=== PATIENT | female | born 1985 | race Caucasian/White ===

== ENCOUNTER 2016-08-27 12:15 | Emergency (ER) | payer SELFPAY ==
[2016-08-27 13:14] VITALS: TEMP 98.7; BMI 57.3
[2016-08-27 13:27] LABS: AUTOMATED BASOPHIL 0.7 % (0-2); AUTOMATED EOSINOPHIL 2.2 % (0-5); AUTOMATED LYMPH 24.6 % (17-44); AUTOMATED MONOCYTE 5.3 % (3-10); AUTOMATED NEUTROPHIL 67.2 % (45-76); MPV 8.5 fL (7.4-10.4)
[2016-08-27 13:36] LABS: BLOOD UREA NITROGEN 15 MG/DL (7-17); CALCIUM 9.2 MG/DL (8.4-10.2); CALCULATED OSMOLALITY 270 MOs/Kg (270-290); CHLORIDE 103 mEq/L (98-107); GLUCOSE 113 MG/DL (70-99); SODIUM LEVEL 139 mEq/L (137-146); TOTAL PROTEIN 7.7 G/DL (6.3-8.2)
[2016-08-27 13:42] LABS: LEUKOCYTES/URINE TRACE (NEGATIVE); NITRITE/URINE NEG (NEGATIVE); URINE OCCULT BLOOD NEG (NEG/TRACE)
[2016-08-27 14:07] LABS: hTSH 2.4 uIU/mL (0.5-4.67)
[2016-08-27 14:34] LABS: FREE T3 3.61 pg/mL (2.77-5.27); FREE T4 0.73 ng/dL (0.78-2.19)
--- NOTE | 2016-08-27 16:31 | EDPRACDOC ---
- General Information Information Source: Patient Mode Of Arrival: Car - History of Present Illness Onset: 1 MONTH Last Menstrual Period: IUD : No Blood Type: O+ <Penny Eldridge - Last Filed: 08/27/16 16:31> - History of Present Illness Pain Location: Reports: Diffuse Pain Context: Reports: Spontaneous Pain Severity: Mild Pain Quality: Reports: Aching Pain Radiation: Reports: No Radiation Adult Abdominal History: Reports: Abdominal Surgery Modifying Factors: improves with: Nothing Female Associated Signs & Symptoms: Reports: Nausea Oral Intake: Normal Urinary Output: Normal <Franklyn Guerrero - Last Filed: 08/27/16 20:10> - General Information Chief Complaint: Abdominal Pain Stated Complaint: ABD PAIN Time Seen by Provider: 08/27/16 16:30 Home Medications: Home Medications Ketorolac Tromethamine 10 mg PO Q6H PRN #20 tab 08/27/16 Allergies/Adverse Reactions: Allergies Allergy/AdvReac Type Severity Reaction Status Date / Time Penicillins Allergy Rash-Genera Verified 08/27/16 13:14 lized - History of Present Illness HPI: HX OF UMBILICAL HERNIA; ABDOMINAL PAIN FOR A MONTH THAT IS NOW WORSE. NAUSEA WITHOUT VOMITING. TWO PREVIOUS ABDOMINAL SURGERIES. (Franklyn Guerrero) ED Past Medical History - Patient Medical History Psychological History: Reports: Anxiety. Denies: Depression Systemic History: Reports: Diabetes (GESTATIONAL), Hypothyroidism. Denies: Cancer, Anemia, Lupus Surgical History: Reports: Hernia Surgery (04/2014), Other (incarcerated incisional hernia repair, removal of mesh) - Family Medical History Reports: Diabetes (FATHER), Stroke (FATHER TIA), Cardiac Disorders (FATHER). Denies: Hypertension, Cancer - Social Medical History Smoking Status: Never smoker <Penny Eldridge - Last Filed: 08/27/16 16:31> - History Reviewed Yes Nurses notes reviewed and agree except as marked <Franklyn Guerrero - Last Filed: 08/27/16 20:10> EDM Review of Systems - Review of Systems ROS Negative Except as Marked: Yes All systems reviewed and were negative except as marked <Franklyn Guerrero - Last Filed: 08/27/16 20:10> - Physical Exam Constitutional: Alert (Awake), No apparent distress Oriented to: Time, Person, Place - HEENT Head: Normal ( normocephalic) Eye Exam: Normal (PERRL, EOMI, Sclera white) Oropharynx: Normal (Pharynx:Moist without exudate,Gums-no swelling) Tympanic Membrane: Normal ENT EAC: Normal TMJ: Normal Nose: No Symptoms Reported (septum midline) Neck: Normal (FROM, trachea at midline) - Respiratory/Cardiovascular Respiratory: Normal - CTA (BBS clear to auscultation without adventitious sounds ) Cardiovascular: Normal (RRR without murmur, gallop or rub) - GI Auscultation: Normal (NABS) Palpation: Normal (Soft,No rebound or guarding, non distended) Tenderness: Non tender Bahena's Sign: Negative - Musculoskeletal Back: Normal (Non-Tender) Extremities: Normal (Normal tone, Pulses 2+ No cyanosis or edema, FROM) - Integumentary Skin: Normal, Warm, Dry Lymphatics: Normal (no adenopathy) - Neurologic Memory Impaired: Normal Motor Function: Normal (Normal tone, Pulses 2+ No cyanosis or edema, FROM) Cranial Nerve: Normal (CN II-X11 intact sensation, strength 5/5) Cerebellar: Normal Mood Description: Normal Perception: Normal <Franklyn Guerrero - Last Filed: 08/27/16 20:10> - Physical Exam Last recorded Vital Signs: Last Vital Signs Temp 98.7 F 08/27/16 13:11 Pulse 70 08/27/16 19:56 Resp 18 08/27/16 19:56 BP 128/69 08/27/16 19:56 Pulse Ox 95 08/27/16 19:56 Oxygen Pulse Oxygen Saturation 95 O2 Device Room Air Oxygen Flow Rate Fraction of Inspired Oxygen ( FIO2) (Penny Eldridge) (Franklyn Guerrero) - Results 08/27/16 13:18 08/27/16 13:18 <Penny Eldridge - Last Filed: 08/27/16 16:31> - Results 08/27/16 13:18 08/27/16 13:18 <Franklyn Guerrero - Last Filed: 08/27/16 20:10> - Results WBC 11.3 xk/uL (3.8-10.8) H 08/27/16 13:18 RBC 4.48 xM/uL (4.20-5.40) 08/27/16 13:18 Hgb 12.5 g/dL (12.0-16.0) 08/27/16 13:18 Hct 38.1 % (36-47) 08/27/16 13:18 MCV 85 fL (81-99) 08/27/16 13:18 MCH 27.8 pg (27-32) 08/27/16 13:18 MCHC 32.7 g/dl (33-36) L 08/27/16 13:18 RDW 14.5 % (11.5-14.5) 08/27/16 13:18 Plt Count 301 xk/uL (130-400) 08/27/16 13:18 MPV 8.5 fL (7.4-10.4) 08/27/16 13:18 Neut % (Auto) 67.2 % (45-76) 08/27/16 13:18 Lymph % (Auto) 24.6 % (17-44) 08/27/16 13:18 Catahoula % (Auto) 5.3 % (3-10) 08/27/16 13:18 Eos % (Auto) 2.2 % (0-5) 08/27/16 13:18 Baso % (Auto) 0.7 % (0-2) 08/27/16 13:18 Absolute Neuts (auto) 7.57 xk/uL (1.7-8.2) 08/27/16 13:18 Absolute Lymphs (auto) 2.71 xk/uL (0.65-4.75) 08/27/16 13:18 Sodium 139 mEq/L (137-146) 08/27/16 13:18 Potassium 3.9 mEq/L (3.5-5.1) 08/27/16 13:18 Chloride 103 mEq/L (98-107) 08/27/16 13:18 Carbon Dioxide 25 mMOL/L (22-33) 08/27/16 13:18 Anion Gap 15 mEq/L (8-16) 08/27/16 13:18 BUN 15 MG/DL (7-17) 08/27/16 13:18 Creatinine 0.50 MG/DL (0.52-1.04) L 08/27/16 13:18 Estimated GFR (MDRD) > 60 mL/min (>=60) 08/27/16 13:18 Glucose 113 MG/DL (70-99) H 08/27/16 13:18 Calculated Osmolality 270 MOs/Kg (270-290) 08/27/16 13:18 Calcium 9.2 MG/DL (8.4-10.2) 08/27/16 13:18 Total Bilirubin 0.4 MG/DL (0.2-1.3) 08/27/16 13:18 AST 27 IU/L (14-36) 08/27/16 13:18 ALT 37 IU/L (9-52) 08/27/16 13:18 Alkaline Phosphatase 146 IU/L (38-126) H 08/27/16 13:18 Total Protein 7.7 G/DL (6.3-8.2) 08/27/16 13:18 Albumin 4.2 G/DL (3.5-5.0) 08/27/16 13:18 Lipase 94 U/L (23-300) 08/27/16 13:18 TSH 2.40 uIU/mL (0.5-4.67) 08/27/16 13:18 Free T4 0.73 ng/dL (0.78-2.19) L 08/27/16 13:18 Free T3 3.61 pg/mL (2.77-5.27) 08/27/16 13:18 Urine Color Yellow 08/27/16 13:20 Urine Clarity Sl cldy 08/27/16 13:20 Urine pH 6.0 (5.0-8.0) 08/27/16 13:20 Ur Specific Arnett 1.015 (1.003-1.035) 08/27/16 13:20 Urine Protein Neg (NEG/TRACE) 08/27/16 13:20 Urine Glucose (UA) Neg (NEGATIVE) 08/27/16 13:20 Urine Ketones Neg (NEGATIVE) 08/27/16 13:20 Urine Occult Blood Neg (NEG/TRACE) 08/27/16 13:20 Urine Nitrite Neg (NEGATIVE) 08/27/16 13:20 Urine Bilirubin Neg (NEGATIVE) 08/27/16 13:20 Urine Urobilinogen <2.0 MG/DL (0-1) 08/27/16 13:20 Ur Leukocyte Esterase Trace (NEGATIVE) H 08/27/16 13:20 Urine RBC 2-5 (0-5) 08/27/16 13:20 Urine WBC 5-10 (0-5) H 08/27/16 13:20 Ur Epithelial Cells 2+ 08/27/16 13:20 Urine Bacteria Few (NEG/FEW) 08/27/16 13:20 Urine Mucus Occ (NEG/OCC) 08/27/16 13:20 Urine Test Neg (NEGATIVE) 08/27/16 13:20 Lab Results 08/27/16 08/27/16 08/27/16 13:20 13:20 13:18 WBC RBC Hgb Hct MCV MCH MCHC RDW Plt Count MPV Neut % (Auto) Lymph % (Auto) Cata[place]oula % (Auto) Eos % (Auto) Baso % (Auto) Absolute Neuts (auto) Absolute Lymphs (auto) Sodium Potassium Chloride Carbon Dioxide Anion Gap BUN Creatinine Estimated GFR (MDRD) Glucose Calculated Osmolality Calcium Total Bilirubin AST ALT Alkaline Phosphatase Total Protein Albumin Lipase TSH 2.40 Free T4 0.73 L Free T3 3.61 Urine Color Yellow Urine Clarity Sl cldy Urine pH 6.0 Ur Specific Arnett 1.015 Urine Protein Neg Urine Glucose (UA) Neg Urine Ketones Neg Urine Occult Blood Neg Urine Nitrite Neg Urine Bilirubin Neg Urine Urobilinogen <2.0 Ur Leukocyte Esterase Trace H Urine RBC 2-5 Urine WBC 5-10 H Ur Epithelial Cells 2+ Urine Bacteria Few Urine Mucus Occ Urine Test Neg 08/27/16 08/27/16 13:18 13:18 WBC 11.3 H RBC 4.48 Hgb 12.5 Hct 38.1 MCV 85 MCH 27.8 MCHC 32.7 L RDW 14.5 Plt Count 301 MPV 8.5 Neut % (Auto) 67.2 Lymph % (Auto) 24.6 [place]oul[place] % (Auto) 5.3 Eos % (Auto) 2.2 Baso % (Auto) 0.7 Absolute Neuts (auto) 7.57 Absolute Lymphs (auto) 2.71 Sodium 139 Potassium 3.9 Chloride 103 Carbon Dioxide 25 Anion Gap 15 BUN 15 Creatinine 0.50 L Estimated GFR (MDRD) > 60 Glucose 113 H Calculated Osmolality 270 Calcium 9.2 Total Bilirubin 0.4 AST 27 ALT 37 Alkaline Phosphatase 146 H Total Protein 7.7 Albumin 4.2 Lipase 94 TSH Free T4 Free T3 Urine Color Urine Clarity Urine pH Ur Specific Arnett Urine Protein Urine Glucose (UA) Urine Ketones Urine Occult Blood Urine Nitrite Urine Bilirubin Urine Urobilinogen Ur Leukocyte Esterase Urine RBC Urine WBC Ur Epithelial Cells Urine Bacteria Urine Mucus Urine Test (Penny Eldridge) (Franklyn Guerrero) <Penny Eldridge - Last Filed: 08/27/16 16:31> Decision Time to Discharge: 20:10 - Departure Yes I personally saw and evaluated the patient. Disposition: Home Education/Counseling Given To: Patient Education/Counseling Given Regarding: Diagnosis, Treatment, Prognosis <Franklyn Guerrero - Last Filed: 08/27/16 20:10> - Departure Condition: Good Final Diagnosis: Abdominal pain Instructions: Acute Abdominal Pain (ED) Prescriptions: Ketorolac Tromethamine 10 mg PO Q6H PRN #20 tab PRN Reason: Pain
[2016-08-27] MEDS ORDERED: NS 1,000 ML IV ONE (16:35)
[2016-08-27] MEDS ORDERED: DIATRIZOATE MEGLMINE/SODIUM 30 ML BOTTLE PO ONE (16:35)
[2016-08-27] MEDS ORDERED: HYDROmorphone 1 MG INJECTION IV PRN (16:35)
[2016-08-27] MEDS ORDERED: ONDANSETRON HCL 4 MG/2 ML VIAL IV PRN (16:35)
[2016-08-27] MEDS ORDERED: ONDANSETRON HCL 4 MG/2 ML VIAL IV ONE (16:35)
[2016-08-27] MEDS ORDERED: HYDROmorphone 1 MG INJECTION IV ONE (16:35)
[2016-08-27] MEDS ORDERED: Pharmacy Review for Metformin - IV Contrast Given SCH (17:00)
--- NOTE | 2016-08-27 20:08 | DIRPT ---
CLINICAL DATA: Epigastric and mid abdominal pain for 2 months, worsening. EXAM: CT ABDOMEN AND PELVIS WITH CONTRAST TECHNIQUE: Multidetector CT imaging of the abdomen and pelvis was performed using the standard protocol following bolus administration of intravenous contrast. CONTRAST: 100 cc Isovue 370 COMPARISON: CT scan from 09/11/2014 FINDINGS: Body habitus reduces diagnostic sensitivity and specificity. Lower chest: Unremarkable Hepatobiliary: Diffuse hepatic steatosis Pancreas: Unremarkable Spleen: Unremarkable Adrenals/Urinary Tract: Unremarkable Stomach/Bowel: Unremarkable Vascular/Lymphatic: Unremarkable Reproductive: IUD satisfactorily positioned along the endometrium. Other: No supplemental non-categorized findings. Musculoskeletal: Periumbilical ventral hernia measures 8.1 by 10.1 by 9.8 cm, with the hernia neck measuring 3.0 by 3.5 cm. The hernia contains omental adipose tissue with some mild associated stranding, but no bowel. Can unremarkable IMPRESSION: 1. Periumbilical hernia containing omental adipose tissue, with herniated tissue measuring up to 10.1 cm in long axis. 2. Diffuse hepatic steatosis. 3. Otherwise, no significant abnormalities are observed. Electronically Signed By: Chente Everett M.D. On: 08/27/2016 20:06
[2016-08-27 20:55] VITALS: BP 127/79; PULSE 79
== END 2016-08-27 20:50 | disposition home or self-care (01) ==
LOC: ED 12:15
DX: R10.9 Unspecified abdominal pain (principal)
CPT/HCPCS: 36415; 74177; 80053; 81001; 81025; 83690; 84439; 84443; 84481; 85025; 96361; 96374; 96375; 99284; A9698; J1170; J2405